=== PATIENT | female | born 1980 | race Caucasian/White ===

== ENCOUNTER 2019-02-25 13:16 | Outpatient (CLI) | payer BC ==
--- NOTE | 2019-02-25 14:14 | ULT ---
PELVIC ULTRASOUND WITH GRAYSCALE, COLOR-FLOW AND SPECTRAL DOPPLER IMAGING: HISTORY: Left adnexal mass Correlation: CT abdomen and pelvis of 02/24/2019 from [facility] FINDINGS: The uterus measures 9.6 x 3.5 x 5.9 cm without focal mass or endometrial fluid. The endometrium measu res 7 mm in thickness. The right ovary measures 3.1 x 2.1 x 2 cm in the left ovary measures 5.4 x 4.6 x 4.5 cm. Flow is demo nstrated to both ovaries. There is a 4.6 x 4.2 x 2.9 cm cyst arising from the left ovary. No free fluid is seen in the cul-de-s ac. IMPRESSION: 4.6 x 4.2 x 2.9 cm cyst in the left ovary. A follow-up exam is recommended in 10-12 weeks.
== END 2019-02-25 13:17 | disposition home or self-care (01) ==
LOC: ULT 13:16
PROVIDERS: ATTEND Family Medicine
DX: N83.8 Other noninflammatory disorders of ovary, fallopian tube and broad ligament (principal); N83.202 Unspecified ovarian cyst, left side
CPT/HCPCS: 76856; 93976